=== PATIENT | female | born 1985 | race African-American/Black ===

== ENCOUNTER 2021-09-10 01:43 | Emergency (ER) | payer OTHER ==
[~2021-09-10] VITALS: Ht 160 cm; Wt 71.7 kg
[2021-09-10 01:49] VITALS: BP 158/89
== END 2021-09-10 07:15 | disposition left against medical advice (07) ==
LOC: ER 01:45
DX: M54.9 Dorsalgia, unspecified (principal); R51.9 Headache, unspecified; R11.10 Vomiting, unspecified; Z53.21 Procedure and treatment not carried out due to patient leaving prior to being seen by health care provider